=== PATIENT | female | born 1995 | race African-American/Black ===

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

== ENCOUNTER 2018-07-13 15:00 | Emergency (ER) | payer SELFPAY ==
[~2018-07-13] VITALS: Ht 162.6 cm; Wt 81.8 kg
[2018-07-13 15:08] VITALS: BP 138/88; TEMP 98.9
[2018-07-13 17:20] VITALS: PULSE 73
== END 2018-07-13 17:20 | disposition home or self-care (01) ==
LOC: COL.ER 15:00
DX: S16.1XXA Strain of muscle, fascia and tendon at neck level, initial encounter (principal); W22.8XXA Striking against or struck by other objects, initial encounter

== ENCOUNTER 2019-10-12 11:38 | Emergency (ER) | payer SELFPAY ==
[~2019-10-12] VITALS: Ht 162.6 cm; Wt 79.5 kg
[2019-10-12 12:18] LABS: COLLECTION METHOD CLEAN CATCH
[2019-10-12 12:24] LABS: MUCOUS Present /lpf; PH 8 (5-8); URINE APPEARANCE Clear; URINE BACTERIA None Seen /hpf; URINE BILIRUBIN Negative (NEGATIVE); URINE BLOOD Negative (NEGATIVE); URINE COLOR Yellow; URINE GLUCOSE Negative (NEGATIVE); URINE KETONE Negative (NEGATIVE); URINE LEUKOCYTE ESTERASE Negative (NEGATIVE); URINE NITRATE Negative (NEGATIVE); URINE PROTEIN(semi-quant) Negative (NEGATIVE); URINE RBC 0-2 /hpf; URINE UROBILINOGEN Negative (NEGATIVE)
[2019-10-12] MEDS ORDERED: TAMIFLU 75MG75 MG PO (13:38)
[2019-10-12 13:49] VITALS: BP 108/72; PULSE 102; TEMP 100.9
== END 2019-10-12 13:49 | disposition home or self-care (01) ==
LOC: COL.ER 11:38
PROVIDERS: Nurse Practitioner Primary Care
DX: J10.1 Influenza due to other identified influenza virus with other respiratory manifestations (principal)

== ENCOUNTER 2021-06-14 04:39 | Emergency (ER) | payer OTHER ==
[~2021-06-14] VITALS: Ht 162.6 cm; Wt 86.4 kg
[~2021-06-14 04:39] MED LIST changes: +TAMIFLU 75MG75 MG PO
[2021-06-14 04:46] VITALS: TEMP 98
[2021-06-14 05:02] LABS: BASO # 0.1 K/mm3 (0.0-0.2); BASO % 0.7 % (0.0-2.0); EOS # 0.4 K/mm3 (0.0-0.7); EOS % 5.7 % (0-4.0); GRAN # 3.9 K/mm3 (1.4-6.5); GRAN % 56.7 % (42.2-75.2); HEMOGLOBIN 11.9 g/dl (12.5-16.0); LYMPH # 1.8 K/mm3 (1.2-3.4); LYMPH % 26.8 % (20.0-51.0); MEAN CELL VOLUME 85 fl (80.0-100.0); MEAN CORPUSCULAR HEMOGLOBIN 28 pg (27.0-31.0); MEAN CORPUSCULAR HGB CONC 33 g/dl (33.0-37.0); MEAN PLATELET VOLUME 8.8 fl (7.4-10.4); MONO # 0.7 K/mm3 (0.1-0.6); MONO % 9.8 % (1.7-9.3); PLATELET COUNT 298 K/mm3 (130-400); RED BLOOD COUNT 4.24 M/mm3 (4.10-5.30); REDCELL DISTRIBUTION WIDTH-CV 12.4 % (11.5-14.5)
[2021-06-14 05:05] LABS: HEMATOCRIT 35.9 % (37.0-47.0)
[2021-06-14 05:22] LABS: ALBUMIN 3.6 gm/dL (3.5-5.0); BILIRUBIN,TOTAL 0.3 mg/dL (0.2-1.2); CALCIUM 9.2 mg/dL (8.4-10.2); CREATININE, serum 0.85 mg/dL (0.57-1.11); TOTAL PROTEIN 6.9 gm/dL (6.2-8.1)
[2021-06-14 06:17] LABS: COLLECTION METHOD CLEAN CATCH
[2021-06-14 06:26] LABS: MUCOUS Present /lpf; PH 6 (5-8); URINE APPEARANCE Hazy; URINE BACTERIA None Seen /hpf; URINE BILIRUBIN Negative (NEGATIVE); URINE BLOOD Negative (NEGATIVE); URINE COLOR Yellow; URINE GLUCOSE Negative (NEGATIVE); URINE KETONE Negative (NEGATIVE); URINE LEUKOCYTE ESTERASE Negative (NEGATIVE); URINE NITRATE Negative (NEGATIVE); URINE PROTEIN(semi-quant) Negative (NEGATIVE); URINE RBC None Seen /hpf; URINE UROBILINOGEN Negative (NEGATIVE)
[2021-06-14 07:02] VITALS: BP 134/89; PULSE 85
== END 2021-06-14 07:02 | disposition home or self-care (01) ==
LOC: COL.ER 04:39
PROVIDERS: Emergency Medicine
DX: O46.91 Antepartum hemorrhage, unspecified, first trimester (principal); Z3A.01 Less than 8 weeks gestation of pregnancy
CPT/HCPCS: J7030

== ENCOUNTER 2022-01-26 21:45 | Inpatient (IN) | payer OTHER ==
[~2022-01-26] VITALS: Ht 162.6 cm; Wt 122.7 kg
[2022-01-26 23:00] VITALS: BP 151/72; PULSE 105
[2022-01-26 23:35] LABS: BASO % 0.2 % (0.0-2.0); EOS # 0.2 K/mm3 (0.0-0.7); EOS % 2.1 % (0.0-4.0); GRAN # 7.3 K/mm3 (1.4-6.5); GRAN % 74.8 % (42.2-75.2); LYMPH # 1.4 K/mm3 (1.2-3.4); LYMPH % 14.5 % (20.0-51.0); MEAN CELL VOLUME 81 fl (80.0-100.0); MEAN CORPUSCULAR HGB CONC 31 g/dl (33.0-37.0); MEAN PLATELET VOLUME 9.6 fl (7.4-10.4); MONO # 0.7 K/mm3 (0.1-0.6); MONO % 7.1 % (1.7-9.3); PLATELET COUNT 360 K/mm3 (130-400); RED BLOOD COUNT 3.37 M/mm3 (4.10-5.30)
[2022-01-26 23:38] LABS: HEMATOCRIT 27.4 % (37.0-47.0); HEMOGLOBIN 8.5 g/dl (12.5-16.0); MEAN CORPUSCULAR HEMOGLOBIN 25 pg (27-31)
[2022-01-26 23:44] LABS: ALBUMIN 1.9 gm/dL (3.5-5.0); BILIRUBIN,TOTAL 0.2 mg/dL (0.2-1.2); CALCIUM 8.9 mg/dL (8.4-10.2); CREATININE, serum 0.81 mg/dL (0.57-1.11); POTASSIUM 4.1 mmol/L (3.5-4.5); TOTAL PROTEIN 6.4 gm/dL (6.2-8.1)
[2022-01-26] MEDS ORDERED: PEPCID 20MG TAB20 MG PO (23:58)
[2022-01-27] VITALS (47 sets, daily range): BP systolic 109–187; BP diastolic 33–117; PULSE 83–111; TEMP 97.8–99
[2022-01-27] MEDS ORDERED: PNV TABS 20-11 EACH PO (00:01)
--- NOTE | 2022-01-27 01:35 | NUR ---
Pt reporting "the pain just came out of nowwhere, i might br ready for an epidural." SVR as noted
--- NOTE | 2022-01-27 02:10 | NUR ---
RickyMANUEL [employer]WAY HEAD TENDER into room for epidural placement. Pt moves self to sit on edge of bed. See anesthesia record for dosing information.
--- NOTE | 2022-01-27 06:05 | NUR ---
Dr Collins into room, SVE with AROM of forebag, FSE plaed.
--- NOTE | 2022-01-27 07:15 | NUR ---
AT BEDSIDE. SVE /-1. IUPC PLACED. PT TO RL POSITION WITH LL IN [facility]. VORB PER TO BEGIN INCREASING PITOCIN PER PROTOCOL TO INCREASE THE STRENGTH OF CONTRACTIONS.
[2022-01-27 07:20] LABS: COLLECTION METHOD CLEAN CATCH
[2022-01-27 07:27] LABS: MUCOUS Present (NOT PRESENT); PH 6 (5-8); SQUAMOUS EPITHELIAL 0-2 /hpf (0-10); URINE APPEARANCE Hazy (CLEAR/HAZY); URINE BACTERIA None Seen /hpf (NONE SEEN); URINE BILIRUBIN Negative (NEGATIVE); URINE BLOOD 2+ (NEGATIVE); URINE COLOR Yellow (YELLOW); URINE GLUCOSE Negative (NEGATIVE); URINE KETONE Negative (NEGATIVE); URINE LEUKOCYTE ESTERASE Negative (NEGATIVE); URINE NITRATE Negative (NEGATIVE); URINE PROTEIN(semi-quant) 3+ (NEGATIVE); URINE RBC >50 /hpf (0-2); URINE UROBILINOGEN Negative (NEGATIVE)
--- NOTE | 2022-01-27 08:00 | NUR ---
AT BEDSIDE. SVE /-1. NO NEW ORDERS AT THIS TIME.
--- NOTE | 2022-01-27 08:15 | NUR ---
AT BEDSIDE DISCUSSING PLAN OF CARE WITH PT AND RISK FACTORS FOR POTENTIAL SECTION. PT AGREEABLE TO POC. TEARFUL BUT STABLE. DENIES FURTHER QUESTIONS OR CONCERNS. PLANS TO RECHECK SVE AROUND 0900.
--- NOTE | 2022-01-27 08:30 | NUR ---
DIFFICULTY TRACING CONTRACTIONS WITH IUPC. ADJUSTMENTS MADE BY . CONTINUES TO NOT TRACE WELL. IUPC REMOVED, EXTERNAL TOCO PLACED.
--- NOTE | 2022-01-27 08:55 | NUR ---
AT BEDSIDE. SVE /-1. UNCHAGED. PT AND IN AGREEANCE TO CONTINUE FORWARD WITH SECTION. ALL APPROPRIATE STAFF NOTIFIED.
--- NOTE | 2022-01-27 09:34 | NUR ---
0934: PRIMARY DELIVERY OF VIABLE MALE INFANT AT THIS TIME PER , WITH ASSISTING. CARE OF INFANT ASSUMED BY BLOSSOM FLOOD. 1000: UTERINE ATONY NOTED UPON DELIVERY PER . HEMABATE ADMINISTERED PER LAWRENCE PLATT. SEE ANESTHESIA RECORD. 1020: MODERATE LOCHIA WITH CLOTS NOTED. TO OR SUITE. MANUAL RETRIEVAL OF CLOTS. UTERINE ATONY UPON INITIAL ASSESSMENT. BEGINS TO FIRM UP AT THIS TIME. VORB PER FOR IM METHERGINE, AND NE CYTOTEC. METHERGINE ADMINISTERED BY LAWRENCE COBB. RECTAL CYTOTEC ADMINISTERED BY BLOSSOM ARNOLD. LOCHIA BEGINS TO SLOW. FUNDUS FIRM AT UMBILICUS. WILL CONTINUE TO MONITOR. 1039: PT TO PACU IN STABLE CONDITION. LOCHIA SCANT, NO FURTHER CLOTS NOTED. FUNDUS FIRM AT UMBILICUS. DIFFICULT FUNDAL MASSAGE DUE TO MATERNAL HABITUS. VITAL SIGNS STABLE. ROSEN DRAINING CLEAR YELLOW URINE APPROPRIATELY. DRESSING TO ABDOMINAL INCISION IS CDI. WILL CONTINUE WITH CARES PER PROTOCOL. FOB REMAINS AT BEDSIDE. PT LETHARGIC BUT AROUSES TO VERBAL COMMAND.
[2022-01-27 11:13] LABS: HEMATOCRIT 25.7 % (37.0-47.0); HEMOGLOBIN 7.9 g/dl (12.5-16.0)
[2022-01-27 15:16] LABS: HEMATOCRIT 25.2 % (37.0-47.0); HEMOGLOBIN 7.9 g/dl (12.5-16.0)
--- NOTE | 2022-01-27 15:25 | NUR ---
REPEAT H&H 7.9. STABLE. WILL REPEAT IN AM PER . PT'S LOCHIA SCANT. FUNDUS FIRM AND 2FB BELOW UMBILICUS AT THIS TIME. NO CLOTS NOTED. ROSEN CONTINUES TO DRAIN CLEAR YELLOW URINE. VITAL SIGNS STABLE. PT FULLY ALERT AND ORIENTED.
--- NOTE | 2022-01-27 16:48 | NUR ---
PT REPORTS BLE STILL FEELING "HEAVY," RIGHT LEG IS HEAVIER THAN LEFT LEG. UNABLE TO ELEVATE AND HOLD. PT ASSISTED TO SITTING POSITION. EPIDURAL REMOVED. ALL PADS REPLACED. CLEAN GOWN ON. VITAL SIGNS STABLE. LOCHIA REMAINS SCANT, NO CLOTS NOTED WITH FUNDAL MASSAGE. FUNDUS FIRM AND 2FB BELOW UMBILICUS. ROSEN REMAINS IN PLACE UNTIL PT IS AMBULATORY, 850CC CLEAR YELLOW URINE REMOVED AT THIS TIME.
[2022-01-28 01:00] VITALS: BP 144/76; PULSE 91; TEMP 98.2
[2022-01-28 07:15] VITALS: BP 141/77; PULSE 91; TEMP 98
[2022-01-28 08:24] LABS: HEMATOCRIT 18.9 % (37.0-47.0)
--- NOTE | 2022-01-28 09:02 | NUR ---
AT BEDSIDE ASSESSING PT. SEE PHYS NOTIFICATION REGARDING LOW HGB. NEW ORDERS FOR PO IRON AT THIS TIME PER . WILL CONTINUE TO MONITOR FOR S/S OF LOW HGB.
[2022-01-28 17:25] VITALS: BP 128/68; PULSE 101; TEMP 98
--- NOTE | 2022-01-28 17:47 | NUR ---
PT ABDOMINAL DRESSING REMOVED. MINIMAL OLD DRAINAGE ON DRESSING. NO CURRENT DRAINAGE AT INCISION SITE. NO S/S OF INFECTION NOTED.
--- NOTE | 2022-01-28 18:30 | NUR ---
Report recieved. Resting in bed. Encouraged to shower. Updated whtieboard and POC reviewed. Questions invited and answered.
[2022-01-28 19:30] VITALS: BP 133/77; PULSE 99; TEMP 97.9
[2022-01-29 07:15] VITALS: BP 119/69; PULSE 105; TEMP 98
--- NOTE | 2022-01-29 09:19 | NUR ---
Initial visit; Family thanked Olive Knocker for offering congratulations and God's blessings for the of their son. Olive Knocker thanked family for choosing [facility].
[2022-01-29] MEDS ORDERED: FERROUS SU325 MG/TAB PO (10:31)
[2022-01-29] MEDS ORDERED: IBU800 M1 PO (10:31)
[2022-01-29] MEDS ORDERED: ROXICODONE 55 MG/TAB PO (10:32)
[2022-01-29 17:10] VITALS: BP 145/67; PULSE 103; TEMP 97.5
[2022-01-29 21:00] VITALS: BP 134/66; PULSE 101; TEMP 98.4
[2022-01-30 08:45] VITALS: BP 148/81; PULSE 107; TEMP 98.3
[2022-01-30 17:00] VITALS: BP 147/79; PULSE 101; TEMP 98.4
--- NOTE | 2022-01-30 18:45 | NUR ---
1845 DISMISSED TO HOME PER AMB ACC BY AND BABY
== END 2022-01-30 18:45 | disposition home or self-care (01) | DRG 786 ==
LOC: LDRO 21:45 → OB 23:40 → LDR 23:40 → OB 01-27 11:24
PROVIDERS: Obstetrics & Gynecology; ADMIT Obstetrics & Gynecology
PROC: 3E033VJ Introduction of Other Hormone into Peripheral Vein, Percutaneous Approach (ICD-10-PCS; 2022-01-26)
PROC: 10D00Z1 Extraction of Products of Conception, Low, Open Approach (ICD-10-PCS; principal; 2022-01-27)
DX: O99.02 Anemia complicating childbirth (principal); O75.3 Other infection during labor; O72.1 Other immediate postpartum hemorrhage; D64.9 Anemia, unspecified; O62.0 Primary inadequate contractions; O99.03 Anemia complicating the puerperium; O14.04 Mild to moderate pre-eclampsia, complicating childbirth; O99.892 Other specified diseases and conditions complicating childbirth; G89.29 Other chronic pain; M54.50 Low back pain, unspecified; O99.214 Obesity complicating childbirth; N30.10 Interstitial cystitis (chronic) without hematuria; Z3A.37 37 weeks gestation of pregnancy; Z37.0 Single live birth; Z88.0 Allergy status to penicillin
CPT/HCPCS: J0690; J1100; J2210; J2250; J2400; J2590; J2704; J3010; J7120